=== PATIENT | female | born 2000 | race Caucasian/White ===

== ENCOUNTER → 2019-06-07 | Outpatient (CLI) | payer BC ==
--- NOTE | 2019-06-07 19:04 | REP ---
LEFT ANKLE, FOUR VIEWS: ANKLE: There is no evidence of an acute fracture, dislocation or intrinsic bone disease. Ankle mortise is anatomic. IMPRESSION: No fracture or dislocation. Electronically Signed by Vincent Bailey MD 06/08/2019 11:43 P
== END ==
LOC: M RAD 09:47
PROVIDERS: ATTEND Physician Assistant
DX: M25.572 Pain in left ankle and joints of left foot (principal)

== ENCOUNTER → 2020-07-06 | Outpatient (CLI) | payer BC ==
[2020-07-06 16:32] LABS: BASO # 0.1 10^3/uL (0.0-0.2); BASO % 0.9 % (0.0-1.0); EOS # 0.4 10^3/uL (0.0-0.5); EOS % 4.4 % (0.0-3.0); HEMATOCRIT 42.8 % (36.0-47.0); HEMOGLOBIN 12.9 g/dl (12.0-15.5); LYMPH # 2.7 10^3/uL (1.5-5.0); LYMPH % 29.5 % (24.0-44.0); MEAN CORPUSCULAR HEMOGLOBIN 26.3 pg (27.0-33.0); MEAN CORPUSCULAR HGB CONC 30.1 g/dl (32.0-36.5); MEAN CORPUSCULAR VOLUME 87.2 fl (80.0-96.0); MONO # 0.5 10^3/uL (0.0-0.8); MONO % 5.5 % (0.0-5.0); NEUTROPHILS # 5.4 10^3/uL (1.5-8.5); NEUTROPHILS % 59.5 % (36.0-66.0); PLATELET COUNT, AUTOMATED 361 10^3/uL (150-450); RED BLOOD COUNT 4.91 10^6/uL (4.00-5.40); WHITE BLOOD COUNT 9.1 10^3/uL (4.0-10.0)
[2020-07-06 16:41] LABS: ALBUMIN 3.4 GM/DL (3.2-5.2); ALT/SGPT 17 U/L (12-78); BILIRUBIN,TOTAL 0.2 MG/DL (0.2-1.0); BLOOD UREA NITROGEN 8 MG/DL (7-18); CALCIUM LEVEL 9.2 MG/DL (8.5-10.1); CARBON DIOXIDE LEVEL 28 MEQ/L (21-32); CHLORIDE LEVEL 107 MEQ/L (98-107); CHOLESTEROL LEVEL 199 MG/DL (<200); CHOLESTEROL RISK RATIO 4.234 (<5); CREATININE FOR GFR 0.76 MG/DL (0.55-1.30); GLOMERULAR FILTRATION RATE > 60.0 (>60); GLUCOSE, FASTING 83 MG/DL (70-100); HDL CHOLESTEROL 47 MG/DL (>40); LDL CHOLESTEROL 138 MG/DL (<100); NON-HDL-C 152 MG/DL; POTASSIUM SERUM 4.9 MEQ/L (3.5-5.1); SODIUM LEVEL 140 MEQ/L (136-145); TOTAL PROTEIN 7.5 GM/DL (6.4-8.2); TRIGLYCERIDES LEVEL 68 MG/DL (<150)
[2020-07-06 16:56] LABS: HEMOGLOBIN A1c 5.4 %
== END ==
LOC: M WUC 12:29
PROVIDERS: ATTEND Nurse Practitioner Adult Health
DX: Z00.01 Encounter for general adult medical examination with abnormal findings (principal); F33.0 Major depressive disorder, recurrent, mild; E66.01 Morbid (severe) obesity due to excess calories

== ENCOUNTER → 2020-10-26 | Outpatient (REF) | payer BC ==
[2020-10-26 13:35] LABS: HEMATOCRIT 39.5 % (36.0-47.0); HEMOGLOBIN 11.9 g/dl (12.0-15.5); MEAN CORPUSCULAR HEMOGLOBIN 25.5 pg (27.0-33.0); MEAN CORPUSCULAR HGB CONC 30.1 g/dl (32.0-36.5); MEAN CORPUSCULAR VOLUME 84.8 fl (80.0-96.0); PLATELET COUNT, AUTOMATED 321 10^3/uL (150-450); RED BLOOD COUNT 4.66 10^6/uL (4.00-5.40); WHITE BLOOD COUNT 10.4 10^3/uL (4.0-10.0)
[2020-10-26 14:50] LABS: HCG, SERUM QUANTITATIVE 67962 MIU/ML; HEPATITIS B SURFACE ANTIGEN NEGATIVE (NEGATIVE); HEPATITIS C VIRUS ABY INDEX < 0.0 INDEX (<0.8); HIV 1&2 SCREEN CENTAUR NEGATIVE (NEGATIVE)
== END ==
LOC: M LAB REF 12:41
PROVIDERS: ATTEND Obstetrics & Gynecology
DX: Z32.01 Encounter for pregnancy test, result positive (principal)

== ENCOUNTER → 2020-10-30 | Outpatient (CLI) | payer BC ==
--- NOTE | 2020-10-31 16:34 | REP ---
INDICATION: DATING/VIABILITY COMPARISON: None. TECHNIQUE: Transabdominal 1st trimester obstetrical ultrasound with color Doppler evaluation. FINDINGS: Single live early intrauterine is appreciated. Gestational sac with yolk sac and pole identified. Pastos-rump length of 33 mm corresponds to 10 weeks 1 day gestational age with estimated date of delivery 05/27/2021. heart rate equals 185 beats per minute. A small subchorionic hemorrhage measuring 17 x 28 x 7 mm superior to the gestational sac is suggested IMPRESSION: Single live early intrauterine at 10 weeks 1 day gestational age. Small subchorionic hemorrhage suspected. Complete anatomical assessment should be performed and 19-20 weeks. <Electronically signed by Rony Quintana > 10/31/20 0563
== END ==
LOC: M WHC 13:23
PROVIDERS: ATTEND Obstetrics & Gynecology
DX: Z36.87 Encounter for antenatal screening for uncertain dates (principal); Z3A.10 10 weeks gestation of pregnancy

== ENCOUNTER → 2021-01-04 | Outpatient (CLI) | payer BC ==
--- NOTE | 2021-01-04 12:33 | REP ---
INDICATION: ANATOMY. COMPARISON: 10/30/2020. TECHNIQUE: Real-time sonographic evaluation of the gravid uterus performed. FINDINGS: Estimated gestational age is19 weeks 4 days, EDC 05/27/2021. Today's measurements indicate appropriate growth. Presentation: Breech Placenta posterior, grade 1, without evidence of placenta previa. heart rate is recorded at 155 beats per minute. Amniotic fluid is subjectively normal. Closed cervical length is measured at 4.2 cm. Biometry chart: BPD: 45 mm, 19 weeks 4 days, 48th percentile. HC: 178 mm, 20 weeks 2 days, 70th percentile AC: 156 mm, 20 weeks 5 days, 74th percentile Femur length: 32 mm, 20 weeks 0 days, 62nd percentile HC to AC ratio: 1.15, normal range 1.06-1.25. Estimated weight: 350g, 87th percentile. anatomy: Cranium: Grossly normal Lateral Ventricles/Choroid Plexus: Grossly normal Posterior Fossa/Cerebellum: Grossly normal Nose/lips/profile: Grossly normal Four chamber heart: Not well seen due to position. Right ventricular outflow tract: Not well seen due to position. Left ventricular outflow tract: Grossly normal Left-sided stomach: Grossly normal Kidneys: The AP diameter of the right renal pelvis is 9 mm and left renal pelvis 6 mm, compatible with hydronephrosis. Recommend follow-up. Bladder: Grossly normal Cord Insertion: Grossly normal 3 vessel cord: Grossly normal Spine: Not well seen due to position. IMPRESSION: Viable single intrauterine gestation as above. Findings compatible with hydronephrosis right greater than left. Recommend follow-up. The four-chamber heart, right ventricular outflow tract and spine are not well seen due to position. <Electronically signed by Vincent Bailey > 01/04/21 [id number]
== END ==
LOC: M WHC 10:27
PROVIDERS: ATTEND Obstetrics & Gynecology
DX: Z34.01 Encounter for supervision of normal first pregnancy, first trimester (principal); Z3A.19 19 weeks gestation of pregnancy

== ENCOUNTER → 2021-02-02 | Outpatient (CLI) | payer BC ==
--- NOTE | 2021-02-02 11:10 | REP ---
INDICATION: F/U ANATOMY COMPARISON: 01/04/2021 TECHNIQUE: Transabdominal obstetrical ultrasound with color Doppler evaluation. FINDINGS: Examination demonstrates a single live intrauterine in cephalic presentation. motion is identified by technologist. Placenta is noted posterior and grade 1 without evidence for placenta previa or abruption. Amniotic fluid volume is normal. Cervix measures 3.2 cm in length and appears closed.. Gestational age by LMP and 1st ultrasound 23 weeks 5 days with HERIBERTO 05/27/2021. Gestational age by current measurements 24 weeks 4 days with HERIBERTO 05/21/2021. FHR equals 144 beats per minute. Estimated weight 705 grams (79thpercentile). Anatomical assessment demonstrates normal structures including four-chamber heart/ventricular outflow tracts, diaphragm, and spine. Mild bilateral renal pelviectasis is noted and likely within normal range. IMPRESSION: 1. Single live intrauterine in cephalic presentation demonstrating appropriate estimated weight/growth. 2. The kidneys demonstrate mild pelviectasis within normal range. Normal appearance to the above-mentioned structures. <Electronically signed by Rony Quintana > 02/02/21 [id number]
== END ==
LOC: M WHC 09:30
PROVIDERS: ATTEND Obstetrics & Gynecology
DX: Z34.02 Encounter for supervision of normal first pregnancy, second trimester (principal)

== ENCOUNTER → 2021-03-06 | Outpatient (CLI) | payer BC ==
[2021-03-06 13:08] LABS: HEMATOCRIT 36.7 % (36.0-47.0); HEMOGLOBIN 11.3 g/dl (12.0-15.5); MEAN CORPUSCULAR HEMOGLOBIN 26.7 pg (27.0-33.0); MEAN CORPUSCULAR HGB CONC 30.8 g/dl (32.0-36.5); MEAN CORPUSCULAR VOLUME 86.8 fl (80.0-96.0); PLATELET COUNT, AUTOMATED 272 10^3/uL (150-450); RED BLOOD COUNT 4.23 10^6/uL (4.00-5.40); WHITE BLOOD COUNT 11.6 10^3/uL (4.0-10.0)
== END ==
LOC: M WUC 09:39
PROVIDERS: ATTEND Advanced Practice Midwife
DX: Z34.83 Encounter for supervision of other normal pregnancy, third trimester (principal)

== ENCOUNTER → 2021-05-01 | Outpatient (REF) | payer BC | LOC: M LAB REF 12:21 | PROVIDERS: ATTEND Obstetrics & Gynecology | DX: Z34.83 Encounter for supervision of other normal pregnancy, third trimester (principal) ==

== ENCOUNTER → 2021-05-02 | Outpatient (CLI) | payer BC ==
[2021-05-02 19:00] LABS: HEMATOCRIT 37.5 % (36.0-47.0); HEMOGLOBIN 11.6 g/dl (12.0-15.5); MEAN CORPUSCULAR HEMOGLOBIN 26.1 pg (27.0-33.0); MEAN CORPUSCULAR HGB CONC 30.9 g/dl (32.0-36.5); MEAN CORPUSCULAR VOLUME 84.5 fl (80.0-96.0); PLATELET COUNT, AUTOMATED 233 10^3/uL (150-450); RED BLOOD COUNT 4.44 10^6/uL (4.00-5.40); WHITE BLOOD COUNT 12.4 10^3/uL (4.0-10.0)
[2021-05-02 19:10] LABS: ALT/SGPT 19 U/L (12-78); BILIRUBIN,TOTAL 0.2 MG/DL (0.2-1.0); CREATININE FOR GFR 0.63 MG/DL (0.55-1.30); GLOMERULAR FILTRATION RATE > 60.0 (>60); LDH LACTATE DEHYDROGENASE 182 U/L (84-246); URIC ACID 6.7 MG/DL (2.6-6.0)
[2021-05-03 12:35] LABS: URINE TOTAL PROTEIN 19.3 MG/DL (0-12)
== END ==
LOC: M LAB 16:46
PROVIDERS: ATTEND Obstetrics & Gynecology
DX: Z34.83 Encounter for supervision of other normal pregnancy, third trimester (principal)

== ENCOUNTER 2021-06-04 13:50 | Inpatient (IN) | payer BC ==
[~2021-06-04] VITALS: Ht 170.2 cm; Wt 144.5 kg
[2021-06-04] VITALS (40 sets, daily range): BP systolic 86–148; BP diastolic 48–100
[2021-06-04] MEDS ORDERED: CARBOPROST TROMETHAMINE 250 MCG/ML AMP IM PRN (16:45)
[2021-06-04] MEDS ORDERED: LR 1,000 ML IV SCH (16:45)
[2021-06-04] MEDS ORDERED: LIDOCAINE 1% MDV 20ML VIAL INFIL PRN (16:45)
[2021-06-04] MEDS ORDERED: LACTATED RINGER'S 1000 ML IV STA (16:45)
[2021-06-04] MEDS ORDERED: METHYLERGONOVINE MALEATE 0.2 MG/ML VIAL (J2210) IM PRN (16:45)
[2021-06-04] MEDS ORDERED: TRANEXAMIC ACID INJection 1,000 MG in NS 100 ML IV PRN (16:45)
[2021-06-04] MEDS ORDERED: OXYTOCIN DRIP 30 UNITS in IV 1 EA IV PRN (16:45)
--- NOTE | 2021-06-04 16:53 | HPEPDOC ---
Obstetrical History & Physical General Date of Admission Jun 04, 2021 at 16:42 Primary Care Physician: JUNAID CHAVEZ CNM History of Present Illness Lisette is a 21-year-old female who is a at 41.1 weeks gestation with an HERIBERTO of 05/27/21 based off of her LMP and consistent with her first trimester ultrasound. She has been receiving care from [facility]. Her has been complicated by morbid obesity. Her current BMI is 49. She presents to L&D today with complaints of regular contractions. She reports active movement. She denies leaking of fluid or vaginal bleeding. Chief Complaint: Active Labor Information Provided By: Patient Age: 21 : 1 Term: 0 Pre-term: 0 Abortions: 0 Livin Care Care: Good Care Dating Final EDC: May 27, 2021 Final EDC by: LMP EGA at Admission: 41.1 Antepartum Course Diagnos(e)s Morbid obesity Height (inches): 67 Pre- weight (lbs.): 298 Admission Weight (lbs.): 317 Change in Weight (lbs.): 19 Past Medical History [employer] History: No pertinent history Past Medical History Medical History Morbid obesity Hx of asthma Depression Surgical History: Denies/None Family History Significant Family History: Hypertension (mother), Other (Maternal grandmother with stroke and MS) Social History Social history Works at [employer] Marital Status: Single Family situation: Spouse/partner home Psychosocial History: Depression * Smoker: non-smoker Alcohol: Denies Drugs: denies Abuse Violence Screening Have you been hit/kicked/slapp: No Have you been sexually assault: No Allergies Coded Allergies: amoxicillin (Verified Allergy, Severe, RASH A BABY, 06/04/21) Medications Scheduled No.137/Iron/Folic Acd ( Vitamin Tablet) 1 Each Tablet, 1 TAB PO DAILY Physical Examination Physical Examination GENERAL: Alert and oriented times three. BREAST: . ABDOMEN: Gravid and non-tender to touch. FETUS: Is vertex (VTX) by sterile vaginal examination (SVE), fetus is vertex (VTX) by Scooby. EFW 4000 grams. LUNGS: Clear to auscultation (CTA). EXTREMITIES: Generalized edema. No clonus. Deep tendon reflexes (DTRs) + 2. Vital Signs/I&O Vital Signs Date Time Temp Pulse Resp B/P (MAP) Pulse Ox O2 Delivery O2 Flow Rate FiO2 06/04/21 14:45 98.6 100 18 136/89 (105) Laboratory Data Urine Culture: No Growth Pertinent Laboratoy Data Blood Type: B+ RBC Antibody Screen: Negative HIV: Negative Hepatitis B: Negative Hepatitis C: Negative Rapid Plasma Reagin: Nonreactive Rubella: Immune Chlamydia/Gonorrhea: Negative Group B Streptococcus: Negative Glucose Tolerance Test: 106 Anatomy Ultrasound Ultrasound Date: May 31, 2021 Placenta Location: Fundal Normal Anatomy: Yes Placenta Previa: No Estimated Weight (grams): 4091 Vaginal Examination Dilation: 4 cm Effacement: 100% Station: 0 Presentation: Cephalic presentation Assessment Heart Rate (FHR): 140 Variability: Moderate Accelerations: Positive Decelerations: None Tocometer Contractions: Yes Frequency: every 2-5 min. Assessment/Plan Assessment IUP at 41.1 weeks gestation active labor Category I FHR tracing GBS negative Plan Admit to L&D. OOB ad jose. Diet: clears. Group B Streptococcus (GBS) negative. Labs and intravenous (IV) per unit protocol. Anesthesia per patient's request. Lactated Ringers (LR): Bolus 800 mL prior to epidural, then at 125 mL/hr. Anticipate cervical change. C-S as appropriate. JUNAID CHAVEZ CNM Jun 04, 2021 16:52
[2021-06-04] MEDS ORDERED: PRENTAB9 PO (17:28)
[2021-06-04] MEDS ORDERED: HOME MED LIST COMPLETE! XX SCH (17:30)
[2021-06-04 17:37] LABS: HEMATOCRIT 39.6 % (36.0-47.0); HEMOGLOBIN 12.4 g/dl (12.0-15.5); MEAN CORPUSCULAR HEMOGLOBIN 26.3 pg (27.0-33.0); MEAN CORPUSCULAR HGB CONC 31.3 g/dl (32.0-36.5); MEAN CORPUSCULAR VOLUME 83.9 fl (80.0-96.0); PLATELET COUNT, AUTOMATED 241 10^3/uL (150-450); RED BLOOD COUNT 4.72 10^6/uL (4.00-5.40); WHITE BLOOD COUNT 12.3 10^3/uL (4.0-10.0)
[2021-06-04] MEDS ORDERED: FENTANYL 2MCG/ML ROPIVACAINE 0.2% IN 0.9% NACL 100ML IVBAG As Ordered ONE (19:37)
[2021-06-04] MEDS ORDERED: ONDANSETRON 4MG/2ML VIAL IV PRN (21:05)
[2021-06-04] MEDS ORDERED: EPIDURAL/PCA KEYS XX PRN (21:05)
[2021-06-04] MEDS ORDERED: EPIDURAL COMMENT XX SCH (21:05)
[2021-06-04] MEDS ORDERED: FENTANYL/ROPIVACAINE/NACL BAG 100 ML EPIDURAL SCH (21:05)
[2021-06-04] MEDS ORDERED: REFRIGERATOR IV KEYS XX PRN (21:05)
[2021-06-04] MEDS ORDERED: NALOXONE INJ 0.4MG/1ML VIAL (J2310 PER 1MG) IV PRN (21:05)
[2021-06-04] MEDS ORDERED: diphenhydrAMINE 50MG/ML VIAL (J1200) IV PRN (21:05)
[2021-06-04] MEDS ORDERED: ePHEDrine SULFATE 25 MG/5 ML(5MG/ML) SYRINGE IV PRN (21:05)
[2021-06-04] MEDS ORDERED: LACTATED RINGER'S 1000 ML IV PRN (21:05)
--- NOTE | 2021-06-04 21:06 | IPNPDOC ---
Obstetrical Progress Note Date of Service Jun 04, 2021 Subjective Patient reports she is comfortable with her epidural. Objective Vital Signs Date Time Temp Pulse Resp B/P (MAP) Pulse Ox O2 Delivery O2 Flow Rate FiO2 06/04/21 18:53 97.6 83 18 146/85 (105) Assessment Decelerations: Prolonged (9 minute deceleration right after her epidural. ) Sterile Vaginal Examination Dilation: 5 cm Effacement (%): 100% Station: -1 Postion/Presentation: Cephalic presentation Assessment and Plan Additional Comments spontaneous rupture with cervical exam to thick, heavy meconium. FSE placed. Oxygen started at high flow and patient repositioned. Anesthesia present and given ephedrine. Three more doses of ephedrine given with continued low BPs. Anesthesia notified to turn down epidural pump. Dr. Engel notified of meconium and would like to attend delivery. Will notify Dr. Yuen if continued Category II FHR. JUNAID CHAVEZ CNM Jun 04, 2021 21:06
--- NOTE | 2021-06-04 23:56 | IPNPDOC ---
Obstetrical Progress Note Date of Service Jun 04, 2021 Subjective Patient reports she is comfortable with her epidural but is starting to feel pressure. Objective Vital Signs Date Time Temp Pulse Resp B/P (MAP) Pulse Ox O2 Delivery O2 Flow Rate FiO2 06/04/21 21:02 90 86/48 (61) 06/04/21 18:53 97.6 18 Vital Signs Label Value Date Time Patient Temperature 98.6 degrees F 06/04/21 1445 Temperature Source Temporal 06/04/21 1445 Pulse 100 06/04/21 1445 Blood Pressure Assessment 136/89 (105) 06/04/21 1445 Source Automatic Cuff (NIBP) Respiratory Rate 18 bpm 06/04/21 1445 Blood Pressure Assessment 121/67 (85) 06/04/21 2302 Source Automatic Cuff (NIBP) Pulse 80 06/04/21 2302 Blood Pressure Assessment 131/69 (89) 06/04/21 2253 Source Automatic Cuff (NIBP) Pulse 79 06/04/21 2253 Blood Pressure Assessment 118/78 (91) 06/04/21 2248 Source Automatic Cuff (NIBP) Pulse 70 06/04/21 2248 Assessment Heart Rate (FHR): 100 Variability: Moderate Accelerations: Positive Heart Patterns: Bradycardia Heart Rate Tracing: Category II Tocometer Contractions: Yes Frequency: regular Sterile Vaginal Examination Dilation: 9 cm (AL) Effacement (%): 100% Station: +1 Postion/Presentation: Cephalic presentation Assessment and Plan Age: 21 : 1 Term: 0 Pre-term: 0 Abortions: 0 Livin EGA at Admission: 41.1 Status: Reassuring Group B Streptococcus: Negative Anticipate: Vaginal Delivery Additional Comments Dr. Engel called for neonatology and Dr. Yuen is present in hospital. JUNAID CHAVEZ CNM Jun 04, 2021 23:56
[2021-06-05] VITALS (12 sets, daily range): BP systolic 128–157; BP diastolic 57–89
[2021-06-05] MEDS ORDERED: OXYTOCIN 30 UNITS IN 0.9% NaCl 500ML IV BAG (J2590) As Ordered ONE (00:20)
[2021-06-05 01:20] LABS: CORD GAS ABE V -6.6; CORD GAS HCO3 V 20.8 MEQ/L; CORD GAS O2 SAT V 47.9 %; CORD GAS PCO2 V 47.9 mmHg; CORD GAS PH V 7.256 UNITS; CORD GAS PO2 V 22.1 mmHg; CORD GAS SBC V 17.9 MEQ/L; CORD GAS TCO2 V 22.3 MEQ/L
[2021-06-05 01:24] LABS: CORD GAS ABE A -10.9; CORD GAS PCO2 A 65.3 mmHg; CORD GAS PH A 7.103 UNITS
--- NOTE | 2021-06-05 01:41 | DNPDOC ---
[facility] Delivery Note Delivery Note DATE OF DELIVERY: 06/05/21 at 0031 PREDELIVERY DIAGNOSIS: 41-1/7 weeks' gestation and active labor. POST DELIVERY DIAGNOSIS: Delivered. PROCEDURE: Spontaneous vaginal delivery CARBIDE TOOL MAKER: Junaid Wyman CNM, WHNP ANESTHESIA: epidural. ESTIMATED BLOOD LOSS: 250 mL. FINDINGS: 8 pounds; 3620 grams; male , Score 3/9/9, nuchal cord times x 1 loose, thick meconium, bradycardia, multiple variable decelerations, 41.2 weeks gestation at time of delivery DELIVERY SUMMARY: Lisette is a 21-year-old female who is now a who presented to labor and delivery in active labor. She requested an epidural for pain management. Dr. Yuen was notified due to multiple variable decelerations and prolonged decelerations at 6 cm. She continued to have good variability and accelerations. He evaluated her and she continued to change her cervix to 8 cm. She progressed to fully dilated at 0021 and pushed to a living male at 0031 in the LINO position with restitution to LOT. A loose nuchal cord was noted and reduced. The anterior shoulder delivered with ease and the corpus immediately followed. The baby was placed on the maternal abdomen and the cord was clamped and cut and the baby brought over to the table to be evaluated by Dr. Engel. Cord gasses obtained. Baby brought back over to mom and placed [id number] active and crying. The placenta delivered spontaneously and intact at 0038. Uterine hemostasis was achieved via rapid infusion of IV Pitocin and fundal massage. The vagina, cervix, and perineum were inspected and found to have bilateral labial lacerations that were repaired with 3.[address]-1. Both mom and baby are in stable condition. All counts of instruments and sponges are correct. Mom plans to breastfeed. They are naming him Marcus Hopkins. Item Value Date Time Cord Arterial Blood pH 7.103 UNITS 06/05/2137 Cord Arterial Blood PCO2 65.3 mmHg 06/05/2137 Cord Arterial Blood PO2 10.0 mmHg 06/05/2137 Cord Arterial Blood HCO3 20.0 MEQ/L 06/05/2137 Cord Arterial Blood Total CO2 22.0 MEQ/L 06/05/2137 Cord Arterial Blood Base Excess -10.9 06/05/2137 Item Value Date Time Cord Venous Blood pH 7.256 UNITS 06/05/2137 Cord Venous Blood PCO2 47.9 mmHg 06/05/2137 Cord Venous Blood PO2 22.1 mmHg 06/05/2137 Cord Venous Blood HCO3 20.8 MEQ/L 06/05/2137 Cord Venous Blood Total CO2 22.3 MEQ/L 06/05/2137 Cord Venous Base Excess (Actual) -6.6 06/05/2137 Cord Venous Base Excess (Standard) 17.9 MEQ/L 06/05/2137 Cord Venous Blood Oxygen Saturation 47.9 % 06/05/2137 JUNAID WYMAN CNM Jun 05, 2021 01:41
[2021-06-05] MEDS ORDERED: ZOLO100T PO (01:47)
[2021-06-05] MEDS ORDERED: ANUSOL HC CREAM 30GM TOP PRN (03:45)
[2021-06-05] MEDS ORDERED: DIBUCAINE 1% OINTMENT 30GM TOP PRN (03:45)
[2021-06-05] MEDS ORDERED: DOCUSATE SODIUM 100MG CAPSULE PO PRN (03:45)
[2021-06-05] MEDS ORDERED: MEASLES,MUMPS,RUBELLA VACCINE INJ (MMR-II) (90707) SC SCH (03:45)
[2021-06-05] MEDS ORDERED: ACETAMINOPHEN 500 MG TAB PO PRN (03:45)
[2021-06-05] MEDS ORDERED: METHYLERGONOVINE MALEATE 0.2 MG TAB PO PRN (03:45)
[2021-06-05] MEDS ORDERED: RHOGAM 300 MCG (1500 IU) INJ (J2790) IM SCH (03:45)
[2021-06-05] MEDS ORDERED: IBUPROFEN 600MG TAB PO PRN (03:45)
[2021-06-05] MEDS ORDERED: IBUPROFEN 800 MG TAB PO PRN (03:45)
[2021-06-05] MEDS: ACETAMINOPHEN TAB 650MG DOSE (2X325MG) PO PRN (04:15)
[2021-06-05] MEDS: SERTRALINE 100 MG TAB PO SCH (08:17)
[2021-06-05] MEDS: PRENATAL VITAMINS CHEWABLE TABLET PO SCH (08:17)
[2021-06-06] MEDS: ACETAMINOPHEN TAB 650MG DOSE (2X325MG) PO PRN (06:13)
[2021-06-06 06:15] VITALS: BP 131/77
[2021-06-06] MEDS: SERTRALINE 100 MG TAB PO SCH (08:50)
[2021-06-06] MEDS: PRENATAL VITAMINS CHEWABLE TABLET PO SCH (08:50)
[2021-06-06 18:00] VITALS: BP 146/93
== END 2021-06-06 18:40 | disposition home or self-care (01) | DRG 560 ==
LOC: M LDO 13:50 → M NBNUR 16:42 → M LDI 16:43 → M OBS 06-05 03:15
PROVIDERS: ADMIT Advanced Practice Midwife; ATTEND Advanced Practice Midwife
PROC: 10E0XZZ Delivery of Products of Conception, External Approach (ICD-10-PCS; principal; 2021-06-05)
PROC: 0HQ9XZZ Repair Perineum Skin, External Approach (ICD-10-PCS; 2021-06-05)
DX: O48.0 Post-term pregnancy (principal); E66.01 Morbid (severe) obesity due to excess calories; Z3A.41 41 weeks gestation of pregnancy; O99.214 Obesity complicating childbirth; Z88.0 Allergy status to penicillin; O77.0 Labor and delivery complicated by meconium in amniotic fluid; O76 Abnormality in fetal heart rate and rhythm complicating labor and delivery; O69.81X0 Labor and delivery complicated by cord around neck, without compression, not applicable or unspecified; O70.0 First degree perineal laceration during delivery; Z37.0 Single live birth; O99.344 Other mental disorders complicating childbirth; F32.9 Major depressive disorder, single episode, unspecified

== ENCOUNTER 2021-06-24 13:53 | Emergency (ER) | payer BC, MEDICAID ==
[~2021-06-24] VITALS: Ht 170.2 cm; Wt 133.6 kg
[~2021-06-24 13:53] MED LIST: PRENTAB9 PO; ZOLO100T PO
[2021-06-24 15:21] LABS: BASO # 0.1 10^3/uL (0.0-0.2); BASO % 1.2 % (0.0-1.0); EOS # 0.3 10^3/uL (0.0-0.5); EOS % 3.6 % (0.0-3.0); HEMATOCRIT 41.9 % (36.0-47.0); HEMOGLOBIN 12.8 g/dl (12.0-15.5); LYMPH # 2.4 10^3/uL (1.5-5.0); MEAN CORPUSCULAR HGB CONC 30.5 g/dl (32.0-36.5); MONO # 0.5 10^3/uL (0.0-0.8); NEUTROPHILS # 4.5 10^3/uL (1.5-8.5); NEUTROPHILS % 57.9 % (36.0-66.0); PLATELET COUNT, AUTOMATED 304 10^3/uL (150-450); RED BLOOD COUNT 4.93 10^6/uL (4.00-5.40); WHITE BLOOD COUNT 7.7 10^3/uL (4.0-10.0)
[2021-06-24 15:23] LABS: APPEARANCE, URINE HAZY (CLEAR); BACTERIA, URINE AUTO NEGATIVE (NEGATIVE); BILIRUBIN, URINE AUTO NEGATIVE (NEGATIVE); BLOOD, URINE BLOOD 1+ (NEGATIVE); COLOR, URINE YELLOW (YELLOW); GLUCOSE, URINE (UA) AUTO NEGATIVE (NEGATIVE); KETONE, URINE AUTO NEGATIVE (NEGATIVE); LEUKOCYTE ESTERASE, URINE AUTO TRACE (NEGATIVE); MUCUS, URINE SMALL (NEGATIVE); NITRITE, URINE AUTO NEGATIVE (NEGATIVE); PROTEIN, URINE AUTO NEGATIVE (NEGATIVE); RBC, URINE AUTO 2 /HPF (0-3); SPECIFIC GRAVITY URINE AUTO 1.016 (1.002-1.035); SQUAMOUS EPITHELIAL CELL UR AU 2 /HPF (0-6); UROBILINOGEN, URINE AUTO 0.2 mg/dL (0.0-2.0); WBC, URINE AUTO 2 /HPF (0-3)
[2021-06-24 15:47] LABS: ALBUMIN 3.1 GM/DL (3.2-5.2); ALT/SGPT 24 U/L (12-78); BILIRUBIN,DIRECT < 0.1 MG/DL (0.0-0.2); BILIRUBIN,TOTAL 0.4 MG/DL (0.2-1.0); TOTAL PROTEIN 7.2 GM/DL (6.4-8.2)
[2021-06-24 17:17] LABS: TOTAL PROTEIN,RANDOM URINE 12.2 MG/DL (0.0-12.0)
--- NOTE | 2021-06-24 18:15 | REPVR ---
PROCEDURE INFORMATION: Exam: CT Head Without Contrast Exam date and time: 06/24/2021 5:11 PM Age: 21 years old Clinical indication: Dizziness; Additional info: HTN, post 06/05/2021, dizziness, vision changes TECHNIQUE: Imaging protocol: Computed tomography of the head without contrast. Radiation optimization: All CT scans at this facility use at least one of these dose optimization techniques: automated exposure control; mA and/or kV adjustment per patient size (includes targeted exams where dose is matched to clinical indication); or iterative reconstruction. COMPARISON: No relevant prior studies available. FINDINGS: Brain: Normal. No hemorrhage. Unremarkable white matter. No mass effect. Cerebral ventricles: No ventriculomegaly. Paranasal sinuses: Visualized sinuses are unremarkable. No fluid levels. Mastoid air cells: Visualized mastoid air cells are well aerated. Bones/joints: Unremarkable. No acute fracture. Soft tissues: Unremarkable. IMPRESSION: Negative noncontrast head CT. Electronically signed by: Juanjose Hayes On 06/24/2021 18:15:07 PM
[2021-06-24] MEDS ORDERED: LABETALOL 100MG TAB PO ONE (18:40)
[2021-06-24 18:45] VITALS: BP 134/90
[2021-06-24 19:16] VITALS: BP 138/87
[2021-06-24] MEDS ORDERED: LABE100T5 PO (19:31)
--- NOTE | 2021-06-24 20:16 | ECGEPIP ---
[facility] - ED Test Date: 2021-06-24 Pat Name: DARWIN NARVAEZ Department: Room: - Gender: Female Educational Aide: : 2000 Requested By: Tyler Jones Order Number: [id number] Reading MD: Ashley Jack Measurements Intervals [place] Rate: 84 P: 25 DC: 140 QRS: 38 QRSD: 92 T: 45 QT: 366 QTc: 432 Interpretive Statements Normal sinus rhythm No prior Electronically Signed on 06-24-2021 20:16:20 EDT by Ashley Jack
== END 2021-06-24 19:41 | disposition home or self-care (01) ==
LOC: M ED 13:53
DX: O15.2 Eclampsia complicating the puerperium (principal); R51.9 Headache, unspecified; Z88.1 Allergy status to other antibiotic agents

== ENCOUNTER → 2022-08-28 | Outpatient (REF) | payer OTHER, MEDICAID ==
[~2022-08-28] MED LIST changes: +LABE100T71 PO
[2022-08-28 17:14] LABS: BASO # 0.1 10^3/uL (0.0-0.2); BASO % 0.9 % (0.0-1.0); EOS # 0.4 10^3/uL (0.0-0.5); EOS % 3.5 % (0.0-3.0); HEMATOCRIT 41.3 % (36.0-47.0); HEMOGLOBIN 12.3 g/dl (12.0-15.5); LYMPH # 2.3 10^3/uL (1.5-5.0); LYMPH % 19.9 % (24.0-44.0); MEAN CORPUSCULAR HEMOGLOBIN 25.2 pg (27.0-33.0); MEAN CORPUSCULAR HGB CONC 29.8 g/dl (32.0-36.5); MEAN CORPUSCULAR VOLUME 84.6 fl (80.0-96.0); MONO # 0.6 10^3/uL (0.0-0.8); MONO % 5.5 % (2.0-8.0); NEUTROPHILS # 7.9 10^3/uL (1.5-8.5); NEUTROPHILS % 69.8 % (36.0-66.0); PLATELET COUNT, AUTOMATED 329 10^3/uL (150-450); RED BLOOD COUNT 4.88 10^6/uL (4.00-5.40); WHITE BLOOD COUNT 11.3 10^3/uL (4.0-10.0)
[2022-08-28 18:24] LABS: HEMOGLOBIN A1c 5.1 % (4.0-6.0)
[2022-08-28 19:03] LABS: ALBUMIN 3.9 G/DL (3.2-5.2); ALT/SGPT 12 U/L (7.0-40); BILIRUBIN,TOTAL 0.2 MG/DL (0.3-1.2); BLOOD UREA NITROGEN 16 MG/DL (9-23); CALCIUM LEVEL 10.1 MG/DL (8.5-10.1); CARBON DIOXIDE LEVEL 27 MMOL/L (20-31); CHLORIDE LEVEL 102 MMOL/L (98-107); CHOLESTEROL LEVEL 177 MG/DL (<200); CHOLESTEROL RISK RATIO 3.79 (<5); CREATININE FOR GFR 0.69 MG/DL (0.55-1.30); GLOMERULAR FILTRATION RATE > 60.0 (>60); GLUCOSE, FASTING 76 MG/DL (60-100); HDL CHOLESTEROL 46.7 MG/DL (>40); LDL CHOLESTEROL 103.5 MG/DL (<100); NON-HDL-C 130 MG/DL; POTASSIUM SERUM 4.7 MMOL/L (3.5-5.1); SODIUM LEVEL 139 MMOL/L (136-145); THYROID STIMULATING HORMONE 2.333 uIU/ML (0.55-4.78); TOTAL 25(OH) VITAMIN D 13.7 NG/ML (20.0-100.0); TOTAL PROTEIN 7.3 G/DL (5.7-8.2); TRIGLYCERIDES LEVEL 134 MG/DL (<150)
[2022-08-28 19:06] LABS: HEPATITIS C VIRUS ABY INDEX 0.1 INDEX (<0.8)
[2022-08-28 20:47] LABS: HIV 1&2 SCREEN CENTAUR NEGATIVE (NEGATIVE)
== END ==
LOC: M LAB REF 16:13
PROVIDERS: ATTEND Nurse Practitioner Family
DX: Z13.228 Encounter for screening for other metabolic disorders (principal); Z11.3 Encounter for screening for infections with a predominantly sexual mode of transmission; A64 Unspecified sexually transmitted disease

== ENCOUNTER 2022-10-06 04:51 | Emergency (ER) | payer BC, OTHER ==
[~2022-10-06] VITALS: Ht 170.2 cm; Wt 146.3 kg
[2022-10-06] MEDS ORDERED: ONDANSETRON 4MG ORAL DISINTEGRATING TAB PO ONE ×2 (05:45→12:20)
[2022-10-06 06:22] LABS: BASO # 0.1 10^3/uL (0.0-0.2); BASO % 0.5 % (0.0-1.0); EOS # 0.2 10^3/uL (0.0-0.5); EOS % 1.6 % (0.0-3.0); HEMOGLOBIN 12.2 g/dl (12.0-15.5); LYMPH # 1.2 10^3/uL (1.5-5.0); LYMPH % 8.7 % (24.0-44.0); MEAN CORPUSCULAR HGB CONC 30.5 g/dl (32.0-36.5); MEAN CORPUSCULAR VOLUME 85.1 fl (80.0-96.0); MONO # 0.6 10^3/uL (0.0-0.8); MONO % 4.2 % (2.0-8.0); NEUTROPHILS # 11.6 10^3/uL (1.5-8.5); NEUTROPHILS % 84.5 % (36.0-66.0); PLATELET COUNT, AUTOMATED 264 10^3/uL (150-450); WHITE BLOOD COUNT 13.7 10^3/uL (4.0-10.0)
[2022-10-06 06:40] LABS: HCG, SERUM QUALITATIVE NEGATIVE (NEGATIVE)
[2022-10-06 06:46] LABS: LIPASE 33 U/L (12-53)
[2022-10-06 06:47] LABS: BILIRUBIN,DIRECT 0.2 MG/DL (<0.4)
[2022-10-06 06:57] LABS: ALBUMIN 3.7 G/DL (3.2-5.2); ALKALINE PHOSPHATASE 133 U/L (46-116); ALT/SGPT 15 U/L (7.0-40); AST/SGOT 28 U/L (<34); BILIRUBIN,TOTAL 0.6 MG/DL (0.3-1.2); BLOOD UREA NITROGEN 7 MG/DL (9-23); CARBON DIOXIDE LEVEL 19 MMOL/L (20-31); CHLORIDE LEVEL 106 MMOL/L (98-107); CREATININE FOR GFR 0.77 MG/DL (0.55-1.30); GLOMERULAR FILTRATION RATE > 60.0 (>60); GLUCOSE, FASTING 107 MG/DL (60-100); POTASSIUM SERUM 4.7 MMOL/L (3.5-5.1); SODIUM LEVEL 139 MMOL/L (136-145); TOTAL PROTEIN 7.6 G/DL (5.7-8.2)
[2022-10-06] MEDS ORDERED: ACETAMINOPHEN 325 MG TAB PO ONE (11:15)
[2022-10-06] MEDS ORDERED: LIDOCAINE VISCOUS 2% SOLN 15ML UDC SSP ONE (11:15)
[2022-10-06] MEDS ORDERED: CLINDAMYCIN 150MG CAPSULE PO ONE ×3 (11:45→12:15)
[2022-10-06] MEDS ORDERED: CLEO300C2 PO (11:52)
[2022-10-06] MEDS ORDERED: ONDA4TAB6 PO (11:58)
[2022-10-06 12:41] VITALS: BP 132/80
== END 2022-10-06 13:48 | disposition home or self-care (01) ==
LOC: M ED 04:51
DX: J02.0 Streptococcal pharyngitis (principal); R05.9 Cough, unspecified; Z88.1 Allergy status to other antibiotic agents; Z79.899 Other long term (current) drug therapy

== ENCOUNTER → 2023-08-04 | Outpatient (CLI) | payer BC, OTHER ==
[~2023-08-04] MED LIST changes: +CLEO300C2 PO; +ONDA4TAB6 PO
== END ==
LOC: M PLALAB 14:03
PROVIDERS: ATTEND Specialist
DX: N92.6 Irregular menstruation, unspecified (principal)

== ENCOUNTER → 2023-10-27 | Outpatient (CLI) | payer BC, OTHER | LOC: M RAD 15:44 | PROVIDERS: ATTEND Advanced Practice Midwife | DX: O99.341 Other mental disorders complicating pregnancy, first trimester (principal); Z3A.08 8 weeks gestation of pregnancy; F99 Mental disorder, not otherwise specified ==

== ENCOUNTER → 2023-12-10 | Outpatient (REF) | payer OTHER | LOC: M PLALAB 09:58 | PROVIDERS: ATTEND Advanced Practice Midwife | DX: Z01.419 Encounter for gynecological examination (general) (routine) without abnormal findings (principal); Z12.4 Encounter for screening for malignant neoplasm of cervix ==

== ENCOUNTER → 2024-01-13 | Outpatient (REF) | payer OTHER, BC ==
[~2024-01-13] MED LIST changes: +LABE100T40 PO; -LABE100T71 PO
== END ==
LOC: M SFHCWAGY 12:25
PROVIDERS: ATTEND Nurse Practitioner Family
DX: R19.5 Other fecal abnormalities (principal)

== ENCOUNTER → 2024-02-25 | Outpatient (CLI) | payer BC ==
[2024-02-25 14:29] LABS: HCG, SERUM QUALITATIVE NEGATIVE (NEGATIVE); HCG, SERUM QUANTITATIVE 26.3 MIU/ML (<4.2)
== END ==
LOC: M PLALAB 10:19
PROVIDERS: ATTEND Nurse Practitioner Family
DX: Z32.01 Encounter for pregnancy test, result positive (principal)

== ENCOUNTER → 2024-02-27 | Outpatient (CLI) | payer BC | LOC: M PLALAB 11:10 | PROVIDERS: ATTEND Advanced Practice Midwife | DX: Z87.59 Personal history of other complications of pregnancy, childbirth and the puerperium (principal) ==

== ENCOUNTER → 2024-03-03 | Outpatient (CLI) | payer BC | LOC: M PLALAB 08:09 | PROVIDERS: ATTEND Advanced Practice Midwife | DX: Z87.59 Personal history of other complications of pregnancy, childbirth and the puerperium (principal) ==

== ENCOUNTER → 2024-04-05 | Outpatient (CLI) | payer BC ==
[~2024-04-05] MED LIST changes: +ONDA-282 PO; -ONDA4TAB6 PO
[2024-04-05 15:04] LABS: HEMATOCRIT 38.2 % (36.0-47.0); HEMOGLOBIN 11.8 g/dl (12.0-15.5); MEAN CORPUSCULAR HEMOGLOBIN 25.7 pg (27.0-33.0); MEAN CORPUSCULAR HGB CONC 30.9 g/dl (32.0-36.5); PLATELET COUNT, AUTOMATED 307 10^3/uL (150-450); WHITE BLOOD COUNT 11.5 10^3/uL (4.0-10.0)
[2024-04-05 15:20] LABS: HEMOGLOBIN A1c 5.3 % (4.0-6.0)
[2024-04-05 15:31] LABS: TOTAL PROTEIN,RANDOM URINE 12.9 MG/DL (0.0-14.0)
[2024-04-05 15:36] LABS: CREATININE,RANDOM URINE 218.3 MG/DL; URIC ACID 5.7 MG/DL (3.1-7.8)
[2024-04-05 15:38] LABS: LDH LACTATE DEHYDROGENASE 157 U/L (120-246)
[2024-04-05 15:39] LABS: ALT/SGPT 26 U/L (7.0-40); AST/SGOT < 8 U/L (<34); BILIRUBIN,TOTAL 0.2 MG/DL (0.3-1.2); CREATININE FOR GFR 0.61 MG/DL (0.55-1.30); GLOMERULAR FILTRATION RATE > 60.0 (>60)
[2024-04-05 16:06] LABS: HIV 1&2 SCREEN NEGATIVE (NEGATIVE)
[2024-04-05 16:13] LABS: HEPATITIS C VIRUS ABY INDEX < 0.02 INDEX (<0.8)
[2024-04-05 16:36] LABS: GC DNA AMPLIFICATION NEGATIVE (NEGATIVE)
== END ==
LOC: M PLALAB 11:57
PROVIDERS: ATTEND Advanced Practice Midwife
DX: O10.011 Pre-existing essential hypertension complicating pregnancy, first trimester (principal); Z3A.00 Weeks of gestation of pregnancy not specified

== ENCOUNTER → 2024-04-27 | Outpatient (CLI) | payer BC | LOC: M PLALAB 09:50 | PROVIDERS: ATTEND Advanced Practice Midwife | DX: Z34.80 Encounter for supervision of other normal pregnancy, unspecified trimester (principal); Z3A.00 Weeks of gestation of pregnancy not specified ==

== ENCOUNTER → 2024-08-09 | Outpatient (CLI) | payer MEDICAID ==
[2024-08-09 11:08] LABS: HEMATOCRIT 31.6 % (36.0-47.0); HEMOGLOBIN 9.7 g/dl (12.0-15.5); MEAN CORPUSCULAR HEMOGLOBIN 25.7 pg (27.0-33.0); MEAN CORPUSCULAR HGB CONC 30.7 g/dl (32.0-36.5); MEAN CORPUSCULAR VOLUME 83.6 fl (80.0-96.0); PLATELET COUNT, AUTOMATED 239 10^3/uL (150-450); RED BLOOD COUNT 3.78 10^6/uL (4.00-5.40); WHITE BLOOD COUNT 8.3 10^3/uL (4.0-10.0)
[2024-08-09 11:14] LABS: GLUCOSE CHALLENGE TEST 1 HOUR 107 MG/DL (LESS THAN 140)
[2024-08-09 11:51] LABS: HEPATITIS C VIRUS ABY INDEX 0.05 INDEX (<0.8)
== END ==
LOC: M PLALAB 08:15
PROVIDERS: ATTEND Advanced Practice Midwife
DX: O99.212 Obesity complicating pregnancy, second trimester (principal); Z3A.00 Weeks of gestation of pregnancy not specified

== ENCOUNTER → 2024-08-13 | Outpatient (REF) | payer MEDICAID | LOC: M LAB REF 16:06 | PROVIDERS: ATTEND Physician Assistant | DX: J02.9 Acute pharyngitis, unspecified (principal) ==

== ENCOUNTER → 2024-08-23 | Outpatient (CLI) | payer MEDICAID, OTHER | LOC: M WHC 14:47 | PROVIDERS: ATTEND Advanced Practice Midwife | DX: O10.012 Pre-existing essential hypertension complicating pregnancy, second trimester (principal) ==

== ENCOUNTER → 2024-08-30 | Outpatient (CLI) | payer OTHER ==
[2024-08-30 18:03] LABS: HEMATOCRIT 35.3 % (36.0-47.0); HEMOGLOBIN 10.7 g/dl (12.0-15.5); MEAN CORPUSCULAR HEMOGLOBIN 26.4 pg (27.0-33.0); MEAN CORPUSCULAR HGB CONC 30.3 g/dl (32.0-36.5); MEAN CORPUSCULAR VOLUME 86.9 fl (80.0-96.0); PLATELET COUNT, AUTOMATED 269 10^3/uL (150-450); RED BLOOD COUNT 4.06 10^6/uL (4.00-5.40); WHITE BLOOD COUNT 13.1 10^3/uL (4.0-10.0)
== END ==
LOC: M PLALAB 14:52
PROVIDERS: ATTEND Advanced Practice Midwife
DX: O99.013 Anemia complicating pregnancy, third trimester (principal); Z3A.00 Weeks of gestation of pregnancy not specified

== ENCOUNTER → 2024-09-13 | Outpatient (CLI) | payer MEDICAID, OTHER | LOC: M WHC 14:56 | PROVIDERS: ATTEND Advanced Practice Midwife | DX: O10.013 Pre-existing essential hypertension complicating pregnancy, third trimester (principal); Z3A.32 32 weeks gestation of pregnancy ==

== ENCOUNTER → 2024-10-11 | Outpatient (REF) | payer OTHER, MEDICAID | LOC: M SFHCWAGY 14:48 | PROVIDERS: ATTEND Obstetrics & Gynecology | DX: O09.293 Supervision of pregnancy with other poor reproductive or obstetric history, third trimester (principal); O10.013 Pre-existing essential hypertension complicating pregnancy, third trimester; O35.9XX0 Maternal care for (suspected) fetal abnormality and damage, unspecified, not applicable or unspecified; O99.213 Obesity complicating pregnancy, third trimester; E66.01 Morbid (severe) obesity due to excess calories; O99.343 Other mental disorders complicating pregnancy, third trimester; F41.8 Other specified anxiety disorders; O99.013 Anemia complicating pregnancy, third trimester; D64.9 Anemia, unspecified; Z3A.36 36 weeks gestation of pregnancy ==

== ENCOUNTER → 2024-10-12 | Outpatient (CLI) | payer MEDICAID, OTHER | LOC: M WHC 10:02 | PROVIDERS: ATTEND Advanced Practice Midwife | DX: O10.012 Pre-existing essential hypertension complicating pregnancy, second trimester (principal); Z3A.36 36 weeks gestation of pregnancy; O26.833 Pregnancy related renal disease, third trimester; N13.30 Unspecified hydronephrosis ==

== ENCOUNTER 2024-10-19 12:11 | Inpatient (IN) | payer OTHER, MEDICAID ==
[~2024-10-19] VITALS: Ht 170.2 cm; Wt 155.4 kg
[2024-10-19 12:31] VITALS: BP 132/82
[2024-10-19] MEDS ORDERED: CARBOPROST TROMETHAMINE 250 MCG/ML AMP IM PRN (12:35)
[2024-10-19] MEDS ORDERED: TRANEXAMIC ACID INJection 1,000 MG in NS 100 ML IV PRN (12:35)
[2024-10-19] MEDS ORDERED: METHYLERGONOVINE MALEATE 0.2MG/ML 1ML VIAL IM PRN (12:35)
[2024-10-19] MEDS ORDERED: OXYTOCIN DRIP 30 UNITS in IV 1 EA IV PRN (12:35)
[2024-10-19] MEDS ORDERED: FERR32TA PO (13:01)
[2024-10-19] MEDS ORDERED: LABE20TAB PO (13:01)
[2024-10-19] MEDS ORDERED: ASPI81CH33 PO (13:08)
[2024-10-19 13:09] LABS: HEMATOCRIT 37.6 % (36.0-47.0); HEMOGLOBIN 11.8 g/dl (12.0-15.5); MEAN CORPUSCULAR HEMOGLOBIN 27.2 pg (27.0-33.0); MEAN CORPUSCULAR HGB CONC 31.4 g/dl (32.0-36.5); MEAN CORPUSCULAR VOLUME 86.6 fl (80.0-96.0); PLATELET COUNT, AUTOMATED 270 10^3/uL (150-450); RED BLOOD COUNT 4.34 10^6/uL (4.00-5.40); WHITE BLOOD COUNT 12.2 10^3/uL (4.0-10.0)
[2024-10-19] MEDS ORDERED: ESCI5SOL3 PO (13:11)
[2024-10-19] MEDS ORDERED: HOME MED LIST COMPLETE! XX SCH (13:15)
[2024-10-19 13:22] VITALS: BP 126/82
[2024-10-19] MEDS: miSOPROStol 50MCG 1/2 TABLET BUC ONE ×2 (13:22→17:25)
[2024-10-19 13:33] LABS: URIC ACID 7.5 MG/DL (3.1-7.8)
[2024-10-19 13:35] LABS: LDH LACTATE DEHYDROGENASE 166 U/L (120-246)
[2024-10-19 13:36] LABS: ALT/SGPT 29 U/L (7.0-40); AST/SGOT 26 U/L (<34); BILIRUBIN,TOTAL 0.3 MG/DL (0.3-1.2); CREATININE FOR GFR 0.54 MG/DL (0.55-1.30); GLOMERULAR FILTRATION RATE > 60.0 (>60)
[2024-10-19 14:16] LABS: HEPATITIS C VIRUS ABY INDEX 0.02 INDEX (<0.8)
[2024-10-19 17:05] VITALS: BP 135/89
[2024-10-19 21:07] VITALS: BP 142/75
[2024-10-19] MEDS: miSOPROStol 50MCG 1/2 TABLET PO SCH (21:35)
[2024-10-20] VITALS (28 sets, daily range): BP systolic 100–170; BP diastolic 53–99; O2SAT 98
[2024-10-20] MEDS: LR 1,000 ML IV SCH (09:30)
[2024-10-20] MEDS: OXYTOCIN DRIP 30 UNITS in IV 1 EA IV SCH ×2 (09:30→19:12)
[2024-10-20] MEDS: LACTATED RINGER'S 1000 ML IV PRN (12:36)
[2024-10-20] MEDS ORDERED: diphenhydrAMINE 50MG/ML VIAL IV PRN (12:40)
[2024-10-20] MEDS ORDERED: EPIDURAL/PCA KEYS XX PRN (12:40)
[2024-10-20] MEDS ORDERED: LR 500 ML IV PRN (12:40)
[2024-10-20] MEDS ORDERED: NALOXONE INJ 0.4MG/1ML VIAL IV PRN (12:40)
[2024-10-20] MEDS ORDERED: ePHEDrine SULFATE 25 MG/5 ML(5MG/ML) SYRINGE IVP PRN (12:40)
[2024-10-20] MEDS: FENTANYL/ROPIVACAINE/NACL BAG 100 ML EPIDURAL SCH (13:21)
[2024-10-20] MEDS: ONDANSETRON 4MG 2ML VIAL IV PRN (16:57)
[2024-10-20 18:35] LABS: CORD GAS ABE V -7.9; CORD GAS HCO3 V 19.7 MMOL/L; CORD GAS PCO2 V 47.9 mmHg; CORD GAS PH V 7.233 UNITS; CORD GAS PO2 V 20.9 mmHg; CORD GAS TCO2 V 21.2 MMOL/L
[2024-10-20] MEDS: OXYTOCIN DRIP 30 UNITS in IV 1 EA IV PRN (18:35)
[2024-10-20 18:37] LABS: CORD GAS ABE A -6.8; CORD GAS HCO3 A 24.1 MMOL/L; CORD GAS O2 SAT A 25.2 %; CORD GAS PCO2 A 71.1 mmHg; CORD GAS PH A 7.148 UNITS; CORD GAS PO2 A 15.3 mmHg; CORD GAS SBC A 17.2 MMOL/L; CORD GAS TCO2 A 26.3 MMOL/L
[2024-10-20] MEDS ORDERED: ONDANSETRON 4MG 2ML VIAL IV PRN (19:00)
[2024-10-20] MEDS ORDERED: DIBUCAINE 1% OINTMENT 30GM TOP PRN (19:00)
[2024-10-20] MEDS ORDERED: DOCUSATE SODIUM 100MG CAPSULE PO PRN (19:00)
[2024-10-20] MEDS ORDERED: RHOGAM 300MCG (1500IU) INJ IM SCH (19:00)
[2024-10-20] MEDS ORDERED: IBUPROFEN 800 MG TAB PO PRN (19:00)
[2024-10-20] MEDS ORDERED: OXYTOCIN 30UNITS IN 0.9% NaCl 500ML IV BAG As Ordered ONE (19:10)
[2024-10-20] MEDS: ACETAMINOPHEN 500 MG TAB PO PRN (19:11)
[2024-10-20] MEDS: LABETALOL 200 MG TAB PO SCH (21:11)
[2024-10-21 06:01] VITALS: BP 118/71; O2SAT 96
[2024-10-21] MEDS: PRENATAL VITAMINS CHEWABLE TABLET PO SCH (09:15)
[2024-10-21] MEDS: IBUPROFEN 600MG TAB PO PRN (09:16)
[2024-10-21] MEDS ORDERED: LEXA1TAB PO (15:27)
[2024-10-21 18:00] VITALS: BP 129/74; O2SAT 100
[2024-10-21] MEDS: ESCITALOPRAM OXALATE 10 MG TAB (LEXAPRO) PO SCH (20:14)
[2024-10-22 06:10] VITALS: BP 111/76; O2SAT 95
[2024-10-22 08:50] VITALS: BP 128/79
[2024-10-22] MEDS: MEASLES,MUMPS,RUBELLA VACCINE INJ (MMR-II) SC.IMMUN ONE (09:00)
== END 2024-10-22 14:30 | disposition home or self-care (01) | DRG 560 ==
LOC: M LDI 12:11 → M OBS 10-20 20:20
PROVIDERS: ADMIT Obstetrics & Gynecology; ATTEND Obstetrics & Gynecology
PROC: 3E0P7GC Introduction of Other Therapeutic Substance into Female Reproductive, Via Natural or Artificial Opening (ICD-10-PCS; 2024-10-19)
PROC: 10E0XZZ Delivery of Products of Conception, External Approach (ICD-10-PCS; principal; 2024-10-20)
PROC: 3E033VJ Introduction of Other Hormone into Peripheral Vein, Percutaneous Approach (ICD-10-PCS; 2024-10-20)
PROC: 0HQ9XZZ Repair Perineum Skin, External Approach (ICD-10-PCS; 2024-10-20)
DX: O10.92 Unspecified pre-existing hypertension complicating childbirth (principal); Z37.0 Single live birth; Z3A.37 37 weeks gestation of pregnancy; E66.01 Morbid (severe) obesity due to excess calories; Z68.43 Body mass index [BMI] 50.0-59.9, adult; O99.214 Obesity complicating childbirth; Z79.899 Other long term (current) drug therapy; O69.82X0 Labor and delivery complicated by other cord entanglement, without compression, not applicable or unspecified; O70.0 First degree perineal laceration during delivery

== ENCOUNTER → 2025-02-18 | Outpatient (CLI) | payer OTHER, MEDICAID ==
[~2025-02-18] MED LIST changes: +ASPI81CH33 PO; +ESCI5SOL3 PO; +FERR32TA PO; +LABE20TAB PO; +LEXA1TAB PO
[2025-02-18 13:50] LABS: FERRITIN 42.9 NG/ML (7.3-270.7); THYROID STIMULATING HORMONE 2.533 uIU/ML (0.55-4.78)
[2025-02-18 13:52] LABS: BLOOD UREA NITROGEN 15 MG/DL (9-23); CALCIUM LEVEL 9.4 MG/DL (8.5-10.1); CARBON DIOXIDE LEVEL 23 MMOL/L (20-31); CHLORIDE LEVEL 109 MMOL/L (98-107); CREATININE FOR GFR 0.82 MG/DL (0.55-1.30); GLOMERULAR FILTRATION RATE > 90.0 (>60); GLUCOSE, FASTING 92 MG/DL (60-100); IRON (FE) 32 UG/DL (50-170); PERCENT SATURATION 9.5 % (13.2-45.0); POTASSIUM SERUM 4.3 MMOL/L (3.5-5.1); SODIUM LEVEL 142 MMOL/L (136-145); TOTAL IRON BINDING CAPACITY 338 UG/DL (250-425)
[2025-02-18 13:55] LABS: HEMATOCRIT 40.7 % (36.0-47.0); HEMOGLOBIN 12.6 g/dl (12.0-15.5); MEAN CORPUSCULAR HEMOGLOBIN 26.1 pg (27.0-33.0); MEAN CORPUSCULAR VOLUME 84.3 fl (80.0-96.0); PLATELET COUNT, AUTOMATED 298 10^3/uL (150-450); RED BLOOD COUNT 4.83 10^6/uL (4.00-5.40); WHITE BLOOD COUNT 8.6 10^3/uL (4.0-10.0)
== END ==
LOC: M WUC 09:38
PROVIDERS: ATTEND Physician Assistant
DX: R53.83 Other fatigue (principal); D50.9 Iron deficiency anemia, unspecified

== ENCOUNTER → 2025-09-07 | Outpatient (CLI) | payer OTHER ==
[2025-09-07 17:17] LABS: ALT/SGPT 11 U/L (7.0-40); AST/SGOT 13 U/L (<34); CALCIUM LEVEL 9.2 MG/DL (8.5-10.1); CARBON DIOXIDE LEVEL 23 MMOL/L (20-31); CHLORIDE LEVEL 105 MMOL/L (98-107); CREATININE FOR GFR 0.73 MG/DL (0.55-1.30); GLOMERULAR FILTRATION RATE > 90.0 (>60); POTASSIUM SERUM 4.2 MMOL/L (3.5-5.1); SODIUM LEVEL 140 MMOL/L (136-145)
[2025-09-07 18:05] LABS: ESTIMATED AVERAGE GLUCOSE 105.0 MG/DL (60-110)
== END ==
LOC: M PLALAB 15:00
PROVIDERS: ATTEND Advanced Practice Midwife
DX: R82.998 Other abnormal findings in urine (principal); R63.1 Polydipsia; R53.83 Other fatigue